=== PATIENT | female | born 1985 | race Caucasian/White ===

== ENCOUNTER → 2024-07-26 09:02 | Outpatient (REF) | payer BC, SELFPAY | LOC: HWRAD 09:02 | PROVIDERS: ATTENDING PHYSICIAN Physician Assistant Medical | DX: E04.1 Nontoxic single thyroid nodule (principal) | CPT/HCPCS: 76536 ==

== ENCOUNTER → 2025-01-05 09:47 | Outpatient (REF) | payer BC, SELFPAY | LOC: HWRAD 09:47 | PROVIDERS: ATTENDING PHYSICIAN Physician Assistant Medical | DX: R10.9 Unspecified abdominal pain (principal); R10.11 Right upper quadrant pain; Z83.79 Family history of other diseases of the digestive system | CPT/HCPCS: 76700 ==